=== PATIENT | male | born 1945 | race Asian ===

== ENCOUNTER 2017-11-12 06:10 | Day surgery (SDC) | payer OTHER ==
[~2017-11-12] VITALS: Ht 162.6 cm; Wt 70.5 kg
[~2017-11-12 06:10] MED LIST: SODIUM CHLORIDE 0.9% 1,000 ML IV ONE
[2017-11-12] MEDS ORDERED: BENZOCAINE 20% 50 MCG/SPRAY 57 GM TP ONE (06:11)
[2017-11-12] MEDS ORDERED: LIDOCAINE HCL 2% 30 ML JELLY TP ONE (06:11)
[2017-11-12] MEDS ORDERED: ALBUTEROL SULFATE 2.5 MG/0.5 ML NEB SOLUTION NEB ONE (06:11)
[2017-11-12] MEDS ORDERED: LIDOCAINE HCL 4% 50 ML SOLUTION TP ONE (06:11)
[2017-11-12] MEDS ORDERED: SODIUM CHLORIDE 0.9% 1,000 ML IV ONE (06:22)
[2017-11-12] MEDS ORDERED: VITA-328 PO (07:31)
[2017-11-12] MEDS ORDERED: MAGOX PO (07:31)
[2017-11-12] MEDS ORDERED: VITAD1000 PO (07:31)
[2017-11-12] MEDS ORDERED: ATOR40TA28 PO (07:31)
[2017-11-12] MEDS ORDERED: DOCO1CAP PO (07:31)
[2017-11-12] MEDS ORDERED: MONT10TA21 PO (07:31)
[2017-11-12] MEDS ORDERED: FOLI1 PO (07:31)
[2017-11-12] MEDS ORDERED: CAND4 PO (07:31)
[2017-11-12] MEDS ORDERED: MIDAZOLAM HCL 2 MG/2 ML VIAL ONE (08:19)
[2017-11-12] MEDS ORDERED: FentaNYL CITRATE-PF 100 MCG/2 ML VIAL ONE (08:19)
[2017-11-12] MEDS ORDERED: MethylPREDNISolone SOD SUCC 125 MG/2 ML VIAL IVP ONE (08:45)
[2017-11-12] MEDS ORDERED: MethylPREDNISolone SOD SUCC 125 MG/2 ML VIAL ONE (08:54)
[2017-11-12] MEDS ORDERED: OXYGEN THERAPY IH SCH (20:00)
== END 2017-11-12 10:35 | disposition home or self-care (01) ==
LOC: SURGERY 06:10
PROVIDERS: ATTEND Internal Medicine Critical Care Medicine
DX: J38.4 Edema of larynx (principal); B37.0 Candidal stomatitis; D64.9 Anemia, unspecified; I10 Essential (primary) hypertension; E78.00 Pure hypercholesterolemia, unspecified; Z87.891 Personal history of nicotine dependence; Z72.89 Other problems related to lifestyle; Z79.899 Other long term (current) drug therapy
CPT/HCPCS: 31623; 31624; 71045; 87015; 87070; 87205; 87206; 87220; 88108; 88184; 88185; 88312; J2250; J2930; J3010; J7030; 87101